=== PATIENT | male | born 1995 | race Caucasian/White ===

== ENCOUNTER 2018-11-07 17:42 | Emergency (ER) | payer OTHER ==
[~2018-11-07] VITALS: Ht 182.9 cm; Wt 71.3 kg
[2018-11-07 17:47] VITALS: Ht 182.9 cm; Wt 71.3 kg
[2018-11-07] MEDS ORDERED: ACETAMINOPHEN 500 MG TAB PO STA (18:44)
[2018-11-07] MEDS ORDERED: IBUP-1542 PO (19:24)
--- NOTE | 2018-11-07 19:28 | ERD ---
ER Documentation Chief Complaint Chief Complaint RT FOOT AND 1ST TOE PAIN AND SWELLING S/P BOX FALLING ON HIS FOOT HPI Patient is a 23-year-old male who presents the ER for concerns of right great toe pain and swelling as well as midfoot pain after he dropped a heavy box on it while at work earlier today. Patient denies any previous fractures or dislocations affected extremity. Patient is able to ambulate however he states is painful. He denies any numbness or tingling. Patient is not taking pain medication. ROS All systems reviewed and are negative except as per history of present illness. Medications Home Meds Active Scripts Ibuprofen* (Motrin*) 600 Mg Tab, 600 MG PO Q6, #30 TAB Prov:FREDY SHIPMAN PA-C 11/07/18 PMhx/Soc History of Surgery: Yes (CHOLECYSTECTOMY) Hx Alcohol Use: No Hx Substance Use: Yes (marijuana) Hx Tobacco Use: No Smoking Status: Former smoker FmHx Family History: No diabetes Physical Exam Vitals Vital Signs Date Temp Pulse Resp B/P (MAP) Pulse Ox O2 O2 Flow FiO2 Time Delivery Rate 11/07/18 98.1 80 16 112/64 99 17:47 (80) Physical Exam GENERAL: Well-developed, well-nourished male. Appears in no acute distress. HEAD: Normocephalic, atraumatic. EYES: Pupils are equally reactive bilaterally. EOMs grossly intact. No conjunctival erythema. NECK: Supple. No meningismus. Normal range of motion of the neck. LUNG: Clear to auscultation bilaterally. No rhonchi, wheezing, rales or coarse breath sounds. HEART: Regular rate and rhythm. No murmurs, rubs or gallops. EXTREMITIES: Equal pulses bilaterally. No peripheral clubbing, cyanosis or edema. No unilateral leg swelling. NEUROLOGIC: Alert and oriented. Moving all four extremities without any difficulty. Normal speech. Steady gait. SKIN: Normal color. Warm and dry. No rashes or lesions. RLE: No obvious deformity. Swelling and ecchymosis noted to the great toe at the base. Tender to palpation of the great toe and midfoot. Nontender to palpation of the fifth metatarsal, lateral ankle, medial ankle.. Sensation intact to light touch. Neurovascularly intact. (Able to plantarflex, dorsiflex, anthony foot, invert foot, raise big toe.) 2+ DP and DT pulses. Results 24 hrs Current Medications Medications Dose Sig/Ramez Start Time Status Last (Trade) Ordered Route PRN Stop Time Admin Dose Reason Admin 1,000 mg ONCE STAT 11/07/18 DC 11/07/18 Acetaminophen PO 18:44 11/07/18 19:14 (Tylenol 18:45 Tab) Procedures/MDM ED COURSE: The patient was stable throughout ED course. I kept the patient and/or family informed of laboratory and diagnostic imaging results throughout the ED course. DIAGNOSTIC IMAGING: Read by radiologist. DIAGNOSTIC IMAGING REPORT Patient: BRAEDEN MAHAJAN : 1995 Age: 23 Sex: M MR #: [id number] DOS: 11/07/18 1844 Ordering MD: FREDY SHIPMAN PA-C Location: [facility] Room/Bed: PROCEDURE: XR right foot. CLINICAL INDICATION: Pain TECHNIQUE: Three views of the right foot were obtained. COMPARISON: No prior studies are available for comparison. FINDINGS: There is no acute fracture or dislocation. Alignment is intact. The joint spaces are maintained. The soft tissues are unremarkable. RPTAT: ZZ IMPRESSION: 1. Unremarkable right foot x-ray series. .Livia Beckman MD, MD Date Time Electronically viewed and signed by .Livia Beckman MD, on 11/07/2018 19:19 .T/ CC: FREDY SHIPMAN PA-C [id number] PROCEDURES: None. MEDICATIONS GIVEN: Tylenol Patient tolerated medication well with no adverse reactions. Patient reported improvement in pain. MEDICAL DECISION MAKING: This is a 23-year-old male presents ER for concerns of right foot pain after dropping a box on it earlier today. Vital signs were reviewed. Patient was afebrile. X-ray imaging was negative for acute fracture or dislocation. Patient was able to bear weight on the affected extremity. Patient will be given crutches to assist with admitting for the next 1-2 days. Patient has a foot sprain with toe contusion. Low suspicion for ankle dislocation, tibia fracture, fibula fracture, ankle fracture, tarsal bone fracture, metatarsal fracture, phalangeal fracture, stress fracture, lisfranc injury, gout, septic joint, reactive arthritis, psoriatic arthritis, DVT, compartment syndrome. At this time, unable to rule out any tendon and ligament injuries. PRESCRIPTIONS: Ibuprofen DISCHARGE: At this time, patient is stable for discharge and outpatient management. RICE therapy and ROM exercises were advised to avoid stiffness. I have instructed the patient to follow-up with his/her primary care physician in 1-2 days. I have discussed with the patient the possibility of needing to see an software implementation specialist for further workup and imaging if the pain persists. I have instructed the patient to promptly return to the ER for any new or worsening symptoms including increased pain, swelling, redness, warmth or fever. The patient and/or family expressed understanding of and agreement with this plan. All questions were answered. Home care instructions were provided. Disclaimer: Inadvertent spelling and grammatical errors are likely due to EHR/dictation software use and do not reflect on the overall quality of patient care. Also, please note that the electronic time recorded on this note does not necessarily reflect the actual time of the patient encounter. Departure Diagnosis: Primary Impression: Right foot pain Additional Impression: Toe contusion Encounter type: initial encounter Toe: great toe Damage to nail status: without damage Laterality: right Qualified Codes: S90.111A - Contusion of right great toe without damage to nail, initial encounter Condition: Fair Patient Instructions: Sprain Foot Referrals: [facility] YOU HAVE RECEIVED A MEDICAL SCREENING EXAM AND THE RESULTS INDICATE THAT YOU DO NOT HAVE A CONDITION THAT REQUIRES URGENT TREATMENT IN THE EMERGENCY DEPARTMENT. FURTHER EVALUATION AND TREATMENT OF YOUR CONDITION CAN WAIT UNTIL YOU ARE SEEN IN YOUR DOCTORS OFFICE WITHIN THE NEXT 1-2 DAYS. IT IS YOUR RESPONSIBILITY TO MAKE AN APPOINTMENT FOR FOLOW-UP CARE. IF YOU HAVE A PRIMARY DOCTOR --you should call your primary doctor and schedule an appointment IF YOU DO NOT HAVE A PRIMARY DOCTOR YOU CAN CALL OUR PHYSICIAN REFERRAL HOTLINE AT IF YOU CAN NOT AFFORD TO SEE A PHYSICIAN YOU CAN CHOSE FROM THE FOLLOWING [facility] [address] [facility]. [facility] [address] [facility] [facility] [address] [facility]. [facility] [address] [facility]. [facility] [address] [facility]. [facility]. [address] [facility]. [facility] YOU HAVE RECEIVED A MEDICAL SCREENING EXAM AND THE RESULTS INDICATE THAT YOU DO NOT HAVE A CONDITION THAT REQUIRES URGENT TREATMENT IN THE EMERGENCY DEPARTMENT. FURTHER EVALUATION AND TREATMENT OF YOUR CONDITION CAN WAIT UNTIL YOU ARE SEEN IN YOUR DOCTORS OFFICE WITHIN THE NEXT 1-2 DAYS. IT IS YOUR RESPONSIBILITY TO MAKE AN APPOINTMENT FOR FOLOW-UP CARE. IF YOU HAVE A PRIMARY DOCTOR --you should call your primary doctor and schedule and appointment IF YOU DO NOT HAVE A PRIMARY DOCTOR YOU CAN CALL OUR PHYSICIAN REFERRAL HOTLINE AT . IF YOU CAN NOT AFFORD TO SEE A PHYSICIAN YOU CAN CHOSE FROM THE FOLLOWING [facility] INSTITUTIONS: [facility] [address] [place] [address] [facility] [address] [place] [address] [facility] + [facility] [address] [place] [address] Additional Instructions: Call your primary care doctor TOMORROW for an appointment during the next 1-2 days.See the doctor sooner or return here if your condition worsens before your appointment time. FREDY SHIPMAN PA-C Nov 07, 2018 19:28
[2018-11-07 19:44] VITALS: BP 118/65; PULSE 72; RESP 16
== END 2018-11-07 19:45 | disposition home or self-care (01) ==
LOC: FTE 17:42
DX: S90.111A Contusion of right great toe without damage to nail, initial encounter (principal); W20.8XXA Other cause of strike by thrown, projected or falling object, initial encounter; Y92.89 Other specified places as the place of occurrence of the external cause; Z87.891 Personal history of nicotine dependence
CPT/HCPCS: 73630; Z7502; Z7610